=== PATIENT | female | born 1965 | race Caucasian/White ===

== ENCOUNTER → 2017-04-14 | Outpatient (CLI) | payer OTHER ==
[~2017-04-14] MED LIST: AA/A14DR7 OT; ALBU8.5H IH; AUG500 PO; AZIT-1 PO; AZIT-18 PO; BACDS PO; BUDE10.2 INH; CEP500 PO; CHOL100059 PO; CLIN300C99 PO; CLOT15CR62 TP; CODE118S5 PO; DICL-195 PO; DICL100G39 TOP; DICL100T54 PO; DOXY-228 PO; DUL100/5PT INH; DULERAPT INH; DUONEB INH; FLU60SYR30 IM ONLY; FLUT1DIS28 IH; GUAI-334 PO; GUAI120L3 PO; HYDR-4309 PO; HYDR12.561 PO; IBU800 PO; IBUP800T37 PO; INDO-1 PO; IPRA3AMP21 IH; LEVO750T44 PO; LIDO700A19 TD; LIDO700A29 TD; LOR5 PO; LOVA10TA63 PO; NO ROUTINE MEDS; NO RTN MEDS; PAN40 PO; PANT40TA65 PO; PER PO; PHENA200 PO; POTA99TA6 PO; PRE20 PO; PRED20TA6 PO; RANI-324 PO; RANI150C17 PO; SIMV10TA98 PO; TIOT4MIS5 INH; TRAM-420 PO
--- NOTE | 2017-04-14 11:06 | RADIOLOGY IMAGING REPORT ---
FACILITY: [facility] [place] PATIENT NAME: Sayra Vilchis : 1965 MR: [id number] V: [id number] EXAM DATE: ORDERING PHYSICIAN: ROSANA PEREZ TECHNOLOGIST: Location: [facility] [place] Patient: Sayra Vilchis : 1965 Visit/Account:[id number] Date of Sevice: 04/14/2017 Exam type: VENOUS DOPP LOW LEFT EXTREMITY History: Left leg became painful Wednesday night Comparison: None. Findings: Left lower extremity veins were imaged including the left common femoral vein greater saphenous vein superficial femoral vein popliteal vein posterior tibial vein peroneal vein anterior tibial vein reve aling no evidence of intraluminal thrombi. The veins were compressible and demonstrated phasic flow IMPRESSION: 1. No sonographic evidence DVT involving the left lower extremity veins A message was left for Rosana Perez at 04/14/2017 9:58 AM. Report Dictated By: Evelia Mora MD at 04/14/2017 9:54 AM Report E-Signed By: Evelia Mora MD at 04/14/2017 9:59 AM WSN:[email or web address]
== END ==
LOC: RAD 08:40
PROVIDERS: ATTEND Nurse Practitioner Primary Care
DX: M79.662 Pain in left lower leg (principal)

== ENCOUNTER → 2017-06-10 | Outpatient (CLI) | payer OTHER ==
[~2017-06-10] MED LIST changes: +BENZ200C15 PO
--- NOTE | 2017-06-10 16:21 | RADIOLOGY IMAGING REPORT ---
FACILITY: [facility] PATIENT NAME: Sayra Vilchis : 1965 MR: [id number] V: [id number] EXAM DATE: ORDERING PHYSICIAN: JOHN BERGERON TECHNOLOGIST: Location: [facility] [place] Patient: Sayra Vilchis : 1965 Visit/Account:[id number] Date of Sevice: 06/10/2017 CHEST PA AND LAT INDICATION: cough, hx copd COMPARISON: 02/22/2017 FINDINGS: Heart size within normal limits. There is no focal infiltrate or lobar consolidation. Mild chronic interstitial prominence is again noted at the lung bases. There is no pneumothorax or pleural effusion. IMPRESSION: 1. No acute cardiopulmonary process. Report Dictated By: Darien Figueroa at 06/10/2017 4:15 PM Report E-Signed By: Darien Figueroa at 06/10/2017 4:17 PM WSN:[id number]
== END ==
LOC: RAD 15:22
PROVIDERS: ATTEND Nurse Practitioner Family
DX: R05 Cough (principal); Z87.09 Personal history of other diseases of the respiratory system
CPT/HCPCS: 71046

== ENCOUNTER 2017-06-13 16:00 | Emergency (ER) | payer OTHER ==
--- NOTE | 2017-06-13 16:08 | ER Report ---
History and Physical Time Seen By MD: 16:08 Hx. of Stated Complaint: Patient with cough since Wednesday. Saw PCP on with Rx for couch medicine, steroids, breathing treatment. Now with continued cough and ear pain. HPI/ROS CHIEF COMPLAINT: Cough HISTORY OF PRESENT ILLNESS: 51-year-old female patient presents to emergency room with complaint of cough. Patient states she started getting sick on Wednesday. She states that she was seen by a primary care provider on . She states that she was started on medicine for the cough, prednisone all with no improvement. She states that she started having fevers night and Wednesday, ranging between 101 and 103. She states that the cough is just persisted. She states she is not feeling any better. She she's been taking the medication as directed also with no improvement. REVIEW OF SYSTEMS: Respiratory: As noted above Cardiovascular: No chest pain, no palpitations. Gastrointestinal: No vomiting, no abdominal pain. Musculoskeletal: No back pain. Allergies: Coded Allergies: levofloxacin (Verified Allergy, Severe, angioedema, 06/13/17) "Caused my throat to swell up". aloe vera (Verified Allergy, Mild, 06/13/17) hydroxyzine (Verified Allergy, Mild, 06/13/17) naproxen (Verified Allergy, Mild, 06/13/17) tramadol (Verified Adverse Reaction, Intermediate, Nausea, headache, dizziness, 06/13/17) Home Meds Active Scripts Promethazine HCl/Codeine (Prometh-Codein 6.25-10 mg/5 ml) 5 Ml Syrup, 1 TSP PO QHS Y for COUGH, #120 ML Prov:NATHALIA MOON [facility] 06/13/17 Azithromycin 250 Mg Tab (AZITHROMYCIN 250 MG TAB) 250 Mg Tablet, 1 TAB PO QDAY, #6 TAB Take 2 tabs today and then 1 tab a day until gone. Prov:NATHALIA MOON [facility] 06/13/17 Prednisone (PREDNISONE) 20 Mg Tablet, 20 MG PO BID, #10 TAB Prov:JOHN BERGERON [facility]- 06/11/17 Benzonatate (BENZONATATE) 200 Mg Capsule, 200 MG PO TID, #15 CAP 0 Refills Prov:JOHN BERGERON [facility]- 06/10/17 Ibuprofen (IBUPROFEN) 800 Mg Tablet, 1 TAB PO Q8H Y for PAIN, #20 TAB 0 Refills Prov:OSMAR LEW DNP, [facility] 04/16/17 Pantoprazole Sodium (PANTOPRAZOLE SODIUM) 40 Mg Tablet.dr, 40 MG PO QDAY, #30 TAB.SR 6 Refills Prov:DARSHAN DE LA CRUZ MD 02/25/17 Simvastatin (SIMVASTATIN) 10 Mg Tablet, 1 TAB PO HS, #90 TAB 3 Refills Prov:OSMAR LEW DNP, FNPMadelaine 02/02/17 Diclofenac Sodium 1% Gel (VOLTAREN 1% GEL) 100 Gm Gel..gram., 2 G TOP Q6H for PAIN, #1 BOTTLE 5 Refills Prov:OSMAR LEW DNP, FNP-BC 02/02/17 Lidocaine (Lidocaine) 5 % Adh..patch, 1-3 ADH.PATCH TD QDAY, #30 PATCH 5 Refills May apply 1/2-1 patch and secure with adhesive tape/stockingette. Prov:OSMAR LEW DNP, FNP-BC 02/02/17 Albuterol Sulfate 90 Mcg/Act (PROAIR HFA 90 MCG/ACT) 8.5 Gm Hfa.aer.ad, 2 PUFF IH Q4-6H Y for SHORTNESS OF BREATH, #1 INHALER 3 Refills Prov[facility] 02/02/17 Diclofenac Sodium (DICLOFENAC SODIUM) 75 Mg Tablet.dr, 1 TAB PO BID for PAIN, # 90 TAB 3 Refills take with food. Prov:OSMAR LEW DNP, FNP-BC 02/02/17 Mometasone/Formoterol (DULERA 200 MCG/5 MCG INHALER) 13 Gm Inh, 2 PUFF INH BID, #1 INH 11 Refills Prov:OSMAR LEW DNP, FNPMadelaine 08/12/16 Cholecalciferol (Vitamin D3) (VITAMIN D3) 1,000 Unit Capsule, 1000 UNIT PO DAILY , #100 CAPSULE 3 Refills Prov:JORDIN GARCIA MD 05/22/16 Reported Medications Ranitidine Hcl (ZANTAC) 150 Mg Tablet, 150 MG PO QAM, TAB 06/13/17 Discontinued Scripts Tramadol Hcl (TRAMADOL HCL) 50 Mg Tablet, 1-2 TAB PO Q6H Y for PAIN, #20 TAB 0 Refills Prov:OSMAR LEW DNP, HOUSEHOLD APPLIANCE ASSEMBLER-BC 04/14/17 Prednisone (PREDNISONE) 20 Mg Tablet, 1 TAB PO TID for 5 Days, #15 TAB 0 Refills Prov:DARSHAN DE LA CRUZ MD 02/25/17 Past Medical/Surgical History Patient has a past medical history of bronchitis, pneumonia, COPD. Patient has surgical history of tubal ligation, section 4. Reviewed Nurses Notes: Yes Hx Smoking: Yes Smoking Status: Former Smoker Exposure to Second Hand Smoke?: Yes Hx Substance Use Disorder: No Hx Alcohol Use: No Constitutional Vital Sign - Last 24 Hours 06/13/17 06/13/17 06/13/17 06/13/17 16:03 16:03 16:20 16:20 Temp 98.4 Pulse 86 80 84 Resp 20 16 B/P (MAP) 146/92 (110) 146/92 Pulse Ox 89 90 O2 Delivery Room Air 06/13/17 06/13/17 06/13/17 06/13/17 16:27 16:40 17:00 17:20 Pulse 82 95 88 93 Resp 18 B/P (MAP) 131/78 (95) Pulse Ox 91 95 89 06/13/17 17:23 B/P (MAP) 139/77 (97) Physical Exam General Appearance: The patient is alert, has no immediate need for airway protection and no current signs of toxicity. ENT: Tympanic membranes are pearly-evans, auditory canals are patent, mucous membranes are moist. Respiratory: Chest is non tender, lungs are clear to auscultation. Cardiac: regular rate and rhythm Gastrointestinal: Abdomen is soft and non tender, no masses, bowel sounds normal. Musculoskeletal: Neck: Neck is supple and non tender. Extremities have full range of motion and are non tender. Skin: No rashes or lesions. DIFFERENTIAL DIAGNOSIS: After history and physical exam differential diagnosis was considered for shortness of breath including but not limited to pulmonary infectious process, COPD, asthma, pulmonary embolus and congestive heart failure. Medical Decision Making Data Points Result Diagram: 06/13/17 1634 06/13/17 1634 Laboratory Hematology Test 06/13/17 16:34 06/13/17 16:37 Red Blood Count 5.17 M/uL (4.17-5.56) Mean Corpuscular Volume 82.9 fL (80.0-96.0) Mean Corpuscular Hemoglobin 27.8 pg (26.0-33.0) Mean Corpuscular Hemoglobin Concent 33.6 g/dL (32.0-36.0) Red Cell Distribution Width 14.7 % (11.5-14.5) Mean Platelet Volume 8.0 fL (7.2-11.1) Neutrophils (%) (Auto) 85.9 % (39.4-72.5) Lymphocytes (%) (Auto) 7.9 % (17.6-49.6) Monocytes (%) (Auto) 5.2 % (4.1-12.4) Eosinophils (%) (Auto) 0.0 % (0.4-6.7) Basophils (%) (Auto) 1.0 % (0.3-1.4) Nucleated RBC Relative Count (auto) 0.0 /100WBC Neutrophils # (Auto) 10.5 K/uL (2.0-7.4) Lymphocytes # (Auto) 1.0 K/uL (1.3-3.6) Monocytes # (Auto) 0.6 K/uL (0.3-1.0) Eosinophils # (Auto) 0.0 K/uL (0.0-0.5) Basophils # (Auto) 0.1 K/uL (0.0-0.1) Nucleated RBC Absolute Count (auto) 0.00 K/uL D-Dimer Quantitative (PE/DVT) 0.39 ug/ml (0-0.50) Sodium Level 138 mmol/L (137-145) Potassium Level 4.3 mmol/L (3.5-5.0) Chloride Level 103 mmol/L (98-107) Carbon Dioxide Level 22 mmol/L (22-31) Blood Urea Nitrogen 18 mg/dl (7-18) Creatinine 1.00 mg/dl (0.52-1.04) Glomerular Filtration Rate Calc 58.9 Random Glucose 129 mg/dl (75-110) Calcium Level 9.2 mg/dl (8.4-10.2) Total Bilirubin 0.3 mg/dl (0.2-1.3) Aspartate Amino Transf (AST/SGOT) 28 U/L (0-35) Alanine Aminotransferase (ALT/SGPT) 32 U/L (0-56) Alkaline Phosphatase 64 U/L (0-126) B-Type Natriuretic Peptide 26 pg/ml (0-100) Total Protein 7.4 gm/dl (6.3-8.2) Albumin 3.9 g/dl (3.5-5.0) Influenza Virus Type A (PCR) Negative (NEGATIVE) Influenza Virus Type B (PCR) Negative (NEGATIVE) Respiratory Syncytial Virus (PCR) Positive (NEGATIVE) Chemistry Test 06/13/17 16:34 06/13/17 16:37 White Blood Count 12.2 k/uL (4.5-11.0) Red Blood Count 5.17 M/uL (4.17-5.56) Hemoglobin 14.4 g/dL (12.0-16.0) Hematocrit 42.9 % (34.0-47.0) Mean Corpuscular Volume 82.9 fL (80.0-96.0) Mean Corpuscular Hemoglobin 27.8 pg (26.0-33.0) Mean Corpuscular Hemoglobin Concent 33.6 g/dL (32.0-36.0) Red Cell Distribution Width 14.7 % (11.5-14.5) Platelet Count 328 K/uL (150-450) Mean Platelet Volume 8.0 fL (7.2-11.1) Neutrophils (%) (Auto) 85.9 % (39.4-72.5) Lymphocytes (%) (Auto) 7.9 % (17.6-49.6) Monocytes (%) (Auto) 5.2 % (4.1-12.4) Eosinophils (%) (Auto) 0.0 % (0.4-6.7) Basophils (%) (Auto) 1.0 % (0.3-1.4) Nucleated RBC Relative Count (auto) 0.0 /100WBC Neutrophils # (Auto) 10.5 K/uL (2.0-7.4) Lymphocytes # (Auto) 1.0 K/uL (1.3-3.6) Monocytes # (Auto) 0.6 K/uL (0.3-1.0) Eosinophils # (Auto) 0.0 K/uL (0.0-0.5) Basophils # (Auto) 0.1 K/uL (0.0-0.1) Nucleated RBC Absolute Count (auto) 0.00 K/uL D-Dimer Quantitative (PE/DVT) 0.39 ug/ml (0-0.50) Glomerular Filtration Rate Calc 58.9 Calcium Level 9.2 mg/dl (8.4-10.2) Total Bilirubin 0.3 mg/dl (0.2-1.3) Aspartate Amino Transf (AST/SGOT) 28 U/L (0-35) Alanine Aminotransferase (ALT/SGPT) 32 U/L (0-56) Alkaline Phosphatase 64 U/L (0-126) B-Type Natriuretic Peptide 26 pg/ml (0-100) Total Protein 7.4 gm/dl (6.3-8.2) Albumin 3.9 g/dl (3.5-5.0) Influenza Virus Type A (PCR) Negative (NEGATIVE) Influenza Virus Type B (PCR) Negative (NEGATIVE) Respiratory Syncytial Virus (PCR) Positive (NEGATIVE) Coagulation Test 06/13/17 16:34 D-Dimer Quantitative (PE/DVT) 0.39 ug/ml EKG/Imaging Imaging Examination: CHEST PA AND LAT Comparison: 06/10/2017 History: Respiratory distress. Cough. Findings: Cardiac and hilar contour size is within normal limits. Mild chronic bronchial thickening. No consolidation. Scattered pulmonary micronodules are unchanged over multiple studies. Additionally, there are calcified hilar nodes suggestive of old granulomatous disease. Osseous structures are intact. IMPRESSION: Chronic changes with no definite evidence of superimposed acute cardiopulmonary disease. Report Dictated By: Tae Westfall MD at 06/13/2017 5:03 PM Report E-Signed By: Tae Westfall MD at 06/13/2017 5:06 PM ED Course/Re-evaluation ED Course Patient was admitted to exam room, history and physical were obtained. Differential diagnoses were considered. On examination lungs are clear, heart is regular. A CBC, CMP, influenza screen were done. Lab results were unremarkable, influenza was negative, however he did receive a phone call the patient was positive for RSV. RSV test was ordered and results were documented. Chest x-ray was done which showed no acute cardiopulmonary processes. Due to the patient's history was COPD and fever we will go ahead and treat her with azithromycin. I did discuss the findings of the x-ray as well as lab work with the patient. We will go ahead and discharge patient home at this time. We will also give her a supply of promethazine with codeine cough syrup. Patient verbalized understanding and agreement with plan. She is to follow-up with her primary care provider this week. Decision to Disposition Date: Jun 13, 2017 Decision to Disposition Time: 17:17 Depart Departure Latest Vital Signs Vital Signs Date Time Temp Pulse Resp B/P (MAP) Pulse Ox O2 Delivery O2 Flow Rate FiO2 06/13/17 17:23 139/77 (97) 06/13/17 17:20 93 89 06/13/17 16:27 18 06/13/17 16:03 98.4 Room Air Impression: Primary Impression: COPD (chronic obstructive pulmonary disease) with acute bronchitis Condition: Improved Disposition: HOME OR SELF-CARE Referrals: OSMAR LEW DNP, HOUSEHOLD APPLIANCE ASSEMBLER-BC (PCP) New Scripts Promethazine HCl/Codeine (Prometh-Codein 6.25-10 mg/5 ml) 5 Ml Syrup 1 TSP PO QHS Y for COUGH, #120 ML Prov: NATHALIA MOON 06/13/17 Azithromycin 250 Mg Tab (AZITHROMYCIN 250 MG TAB) 250 Mg Tablet 1 TAB PO QDAY, #6 TAB Take 2 tabs today and then 1 tab a day until gone. Prov: NATHALIA MOON 06/13/17 Patient Instructions: COPD (Chronic Obstructive Pulmonary Disease) (ED) Additional Instructions: Increase fluid intake. continue with the Steroids and the breathing treatments. Get plenty of rest. Follow up with your primary care provider in the next week. Take the antibiotics as directed. Return to the ER if condition worsens. NATHALIA MOON Jun 13, 2017 16:08
[2017-06-13] MEDS ORDERED: RANI-324 PO (16:09)
[2017-06-13] MEDS ORDERED: NS(*) 0.9% 1000 ML BAG 1,000 ML IV ONE (16:13)
[2017-06-13] MEDS ORDERED: ALBUTEROL/IPRATROPIUM 3 ML NEB NEB ONE (16:15)
[2017-06-13 16:47] LABS: PLATELET COUNT, AUTOMATED 328 K/uL (150-450)
[2017-06-13] MEDS ORDERED: PROMETH/COD SYRP 6.25-10MG/5ML PO ONE (16:55)
--- NOTE | 2017-06-13 17:09 | RADIOLOGY IMAGING REPORT ---
FACILITY: [facility] PATIENT NAME: Sayra Vilchis : 1965 MR: [id number] V: [id number] EXAM DATE: ORDERING PHYSICIAN: NATHALIA MOON TECHNOLOGIST: Location: [facility] [place] Patient: Sayra Vilchis : 1965 Visit/Account:[id number] Date of Sevice: 06/13/2017 Examination: CHEST PA AND LAT Comparison: 06/10/2017 History: Respiratory distress. Cough. Findings: Cardiac and hilar contour size is within normal limits. Mild chronic bronchial thickening. No consolidation. Scattered pulmonary micronodules are unchanged over multiple studies. Additionally, there are calcified hilar nodes suggestive of old granulomatous disease. Osseous structures are inta ct. IMPRESSION: Chronic changes with no definite evidence of superimposed acute cardiopulmonary disease. Report Dictated By: Tae Westfall MD at 06/13/2017 5:03 PM Report E-Signed By: Tae Westfall MD at 06/13/2017 5:06 PM WSN:[id number]
[2017-06-13] MEDS ORDERED: PROM5SYR PO (17:18)
[2017-06-13] MEDS ORDERED: AZIT-18 PO (17:18)
[2017-06-13 17:23] VITALS: BP 139/77
[2017-06-15] MEDS ORDERED: IPRA3AMP21 IH ×2 (09:50→12:44)
[2017-06-15] MEDS ORDERED: PRED20TA6 PO (12:44)
--- NOTE | 2017-06-16 14:56 | Transitional Care Management ---
TCM Discharge Criteria Transitional Care Comment: 06/16 Left message. PREETI PRADHAN Jun 16, 2017 14:56
== END 2017-06-13 17:27 | disposition home or self-care (01) ==
LOC: ER 16:26
DX: J44.9 Chronic obstructive pulmonary disease, unspecified (principal); R06.00 Dyspnea, unspecified
CPT/HCPCS: 71046; 83880; 85025; 85379; 87502; 87798; 94640; 99284; J7620; 82040; 82247; 82310; 82374; 82435; 82565; 82947; 84075; 84132; 84155; 84295; 84450; 84460; 84520

== ENCOUNTER → 2017-06-15 | Outpatient (CLI) | payer OTHER ==
[~2017-06-15] MED LIST changes: +PROM5SYR PO
--- NOTE | 2017-06-15 10:54 | RADIOLOGY IMAGING REPORT ---
FACILITY: [facility] [place] PATIENT NAME: Sayra Vilchis : 1965 MR: [id number] V: [id number] EXAM DATE: ORDERING PHYSICIAN: OSMAR LEW TECHNOLOGIST: Location: [facility] [place] Patient: Sayra Vilchis : 1965 Visit/Account:[id number] Date of Sevice: 06/15/2017 Technique: CHEST PA AND LAT HISTORY: Cough Comparison studies: Chest radiographs June 13, 2017 FINDINGS: No lobar airspace consolidation. No pleural effusion or pneumothorax. The cardiomediastin al silhouette, scattered micronodules and granulomatous findings are unchanged. IMPRESSION: 1. No acute cardiopulmonary process. 2. Chronic changes as above Report Dictated By: Isac Watkins DO at 06/15/2017 10:49 AM Report E-Signed By: Isac Watkins DO at 06/15/2017 10:50 AM WSN:[id number]
== END ==
LOC: RAD 10:03
PROVIDERS: ATTEND Nurse Practitioner Primary Care
DX: R91.8 Other nonspecific abnormal finding of lung field (principal)
CPT/HCPCS: 71046

== ENCOUNTER → 2017-07-28 | Outpatient (CLI) | payer OTHER ==
[~2017-07-28] MED LIST changes: +OMEP40CA48 PO; -RANI-324 PO; +RANI-366 PO; +TRIA15CR40 TP
[2017-07-28 10:36] LABS: LDL CHOLESTEROL 102 mg/dl
== END ==
LOC: LAB 09:16
PROVIDERS: ATTEND Nurse Practitioner Primary Care
DX: E78.00 Pure hypercholesterolemia, unspecified (principal); R63.5 Abnormal weight gain
CPT/HCPCS: 36415; 82040; 82247; 82310; 82374; 82435; 82465; 82565; 82947; 83036; 83718; 84075; 84132; 84155; 84295; 84450; 84460; 84478; 84520

== ENCOUNTER 2017-08-12 15:30 | Outpatient (RCR) | payer OTHER ==
--- NOTE | 2017-08-02 11:02 | OT INITIAL EVALUATION ---
SUBJECTIVE: Patient is a 51 year old right hand dominant female referred to OP OT services for right hand pain and difficulty performing ADLs with the right hand. Patient reports that in 2013 she fell on the ice fracturing her right elbow while at work. She did not require any surgery as a result of the fall. She reports that a few months after the fall her right hand and wrist started hurting-most of the pain was reported to be along the ulnar side of the hand and wrist. Patient also reports of swelling in the wrist. Pain was rated at a constant 4/10 and after the evaluation it was rated at a 8.5/10. She has had multiple tests and has seen multiple providers on her right hand and wrist pain. Nothing definitive has resulted from these tests and visits. Patient has not had any surgery for the right hand. This is an active workman's comp case. Patient reports that she has a hearing in [place], [place] on October 05 with Workman 's Compensation. Patient is seeking from OP OT services ways to help her use adaptive equipment or help with modifications when using the right hand in activities. Previous Medical History: please refer to chart Current Limitations: decreased strength and functional use of the right hand Occupation: N/A OBJECTIVE: ROM: Right Left Wrist Flexion 34* 70* Wrist Extension 40* 70* Strength: Material Assistant Right = 47# (Age/gender normative= 62.2#) Left= 72.7# (Age/gender normative= 56#) Lateral Pinch Right = 15.3# (Age/gender normative= 17.6#) Left= 17.2# (Age/gender normative=16.6#) 3 Point Pinch Right =12.8# (Age/gender normative= 17.9#) Left= 15.7# (Age/gender normative= 17.5#) Sensation: reports of a mix of pain symptoms-pins and needles when bending her right wrist; burning and numbness along the ulnar side of the right hand and wrist; shooting pain in the fingers-mainly the 3rd and 4th Special Test: 9 Hole Peg Test (dexterity) Right= 24 seconds (Age/gender normative= 17.3 seconds) Left= 27 seconds (Age/gender normative= 18.4 seconds) ASSESSMENT Patient presents with decreased right wrist ROM and decreased strength for right pathological technician and pinch. Patient does present with decreased fine motor coordination of the right hand. Patient to benefit from OP OT intervention to help increase ROM and strength of the right hand/wrist for ADLs along with education on adaptive equipment and activity modification when using the right hand. Short Term Goals 1.Patient will decrease time on the 9 Hole Peg Test by 5 seconds on the right hand in order to complete fine motor coordination activities in a timely manner. 2.Patient will complete HEP without assistance. 3.Patient will utilize adaptive techniques and activity modifications for the right hand in order to complete ADLs. PLAN: Plan to see patient 2 times a week for 6 weeks. Plan of care to include: ther ex, ther act, fluidotherapy, hot packs, paraffin, self cares, adaptive equipment, activity modifications Thank you for this referral. If you have any questions, concerns, or comments about this report or plan, please contact me at [phone]. Lu Martínez MS, OTR/L Occupational Therapist [facility]
--- NOTE | 2017-08-12 16:31 | OT DISCHARGE SUMMARY ---
SUBJECTIVE: Patient is a 51 year old right hand dominant female referred to OP OT services for right hand pain and difficulty performing ADLs with the right hand. Patient reports that in 2013 she fell on the ice fracturing her right elbow while at work. She did not require any surgery as a result of the fall. She reports that a few months after the fall her right hand and wrist started hurting-most of the pain was reported to be along the ulnar side of the hand and wrist. Patient also reports of swelling in the wrist. Pain was rated at a constant 4/10 and after the evaluation it was rated at a 8.5/10. She has had multiple tests and has seen multiple providers on her right hand and wrist pain. Nothing definitive has resulted from these tests and visits. Patient has not had any surgery for the right hand. This is an active workman's comp case. Patient reports that she has a hearing in [place], [place] on October 05 with Workman 's Compensation. Patient is seeking from OP OT services ways to help her use adaptive equipment or help with modifications when using the right hand in activities. Reports of pain were always 4/10. Previous Medical History: please refer to chart Current Limitations: decreased strength and functional use of the right hand Occupation: N/A OBJECTIVE: all data is from the initial evaluation, patient did not tolerate ROM or strengthening exercises so there would be no change in the objective data. Patient continues to have pain and discomfort with her right hand and wrist. ROM: Right Left Wrist Flexion 34* 70* Wrist Extension 40* 70* Strength: Grocery Department Manager Right = 47# (Age/gender normative= 62.2#) Left= 72.7# (Age/gender normative= 56#) Lateral Pinch Right = 15.3# (Age/gender normative= 17.6#) Left= 17.2# (Age/gender normative=16.6#) 3 Point Pinch Right =12.8# (Age/gender normative= 17.9#) Left= 15.7# (Age/gender normative= 17.5#) Sensation: reports of a mix of pain symptoms-pins and needles when bending her right wrist; burning and numbness along the ulnar side of the right hand and wrist; shooting pain in the fingers-mainly the 3rd and 4th Special Test: 9 Hole Peg Test (dexterity) Right= 24 seconds (Age/gender normative= 17.3 seconds) Left= 27 seconds (Age/gender normative= 18.4 seconds) ASSESSMENT Patient did not tolerate ROM or strengthening exercises and when she did complete these her symptoms only increased. OT did try fluidotherapy treatments , while this was relaxing for the right hand, patient did not report of a decrease in her pain symptoms. Adaptive equipment needs were identified that would help modify activities that the patient was doing with the right hand. 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 OT services is discharging at this time as treatments to manage the patient's symptoms did not decrease. Short Term Goals 1.Patient will decrease time on the 9 Hole Peg Test by 5 seconds on the right hand in order to complete fine motor coordination activities in a timely manner. (not met) 2.Patient will complete HEP without assistance. (met, but patient was not able to tolerate the exercises, they increased symptoms) 3.Patient will utilize adaptive techniques and activity modifications for the right hand in order to complete ADLs. (met) PLAN: Plan to discharge patient from OT services at this time with no further recommendations. Thank you for this referral. If you have any questions, concerns, or comments about this report or plan, please contact me at [phone]. Lu Martínez MS, OTR/L Occupational Therapist [facility]
== END 2017-08-12 18:00 | disposition home or self-care (01) ==
LOC: OT 15:30
PROVIDERS: ATTEND Nurse Practitioner Primary Care
DX: M79.641 Pain in right hand (principal); R20.2 Paresthesia of skin; M79.89 Other specified soft tissue disorders
CPT/HCPCS: 97165

== ENCOUNTER → 2017-08-18 | Outpatient (CLI) | payer OTHER | LOC: RESP 19:49 | PROVIDERS: ATTEND Nurse Practitioner Primary Care | DX: G47.33 Obstructive sleep apnea (adult) (pediatric) (principal); G47.36 Sleep related hypoventilation in conditions classified elsewhere; E66.3 Overweight ==

== ENCOUNTER → 2017-10-27 | Outpatient (CLI) | payer OTHER ==
[~2017-10-27] MED LIST changes: -INDO-1 PO; +INDO-21 PO; +IPRA3AMP10 IH; -IPRA3AMP21 IH
== END ==
LOC: RESP 20:54
PROVIDERS: ATTEND Nurse Practitioner Primary Care
DX: Z02.9 Encounter for administrative examinations, unspecified (principal)

== ENCOUNTER → 2017-10-28 | Outpatient (CLI) | payer OTHER ==
[~2017-10-28] MED LIST changes: +HYDR-2966 PO
== END ==
LOC: US 01:16
PROVIDERS: ATTEND Nurse Practitioner Primary Care
DX: I35.1 Nonrheumatic aortic (valve) insufficiency (principal); I07.1 Rheumatic tricuspid insufficiency; I34.0 Nonrheumatic mitral (valve) insufficiency
CPT/HCPCS: 93306

== ENCOUNTER → 2017-11-15 | Outpatient (CLI) | payer OTHER | LOC: LAB 08:46 | PROVIDERS: ATTEND Nurse Practitioner Primary Care | DX: R60.9 Edema, unspecified (principal) | CPT/HCPCS: 36415; 82310; 82374; 82435; 82565; 82947; 84132; 84295; 84520 ==

== ENCOUNTER → 2018-02-15 | Outpatient (CLI) | payer OTHER ==
[~2018-02-15] MED LIST changes: +FLU60SYR36 IM; -HYDR-4309 PO; +HYDR-653 PO
[2018-02-15 08:49] LABS: LDL CHOLESTEROL 76 mg/dl
== END ==
LOC: LAB 08:15
PROVIDERS: ATTEND Nurse Practitioner Primary Care
DX: E78.00 Pure hypercholesterolemia, unspecified (principal); J44.0 Chronic obstructive pulmonary disease with (acute) lower respiratory infection
CPT/HCPCS: 36415; 82040; 82247; 82310; 82374; 82435; 82465; 82565; 82947; 83718; 84075; 84132; 84155; 84295; 84450; 84460; 84478; 84520

== ENCOUNTER → 2018-08-16 | Outpatient (CLI) | payer OTHER ==
[~2018-08-16] MED LIST changes: +DIPH0.5S2 IM
== END ==
LOC: LAB 08:29
PROVIDERS: ATTEND Nurse Practitioner Primary Care
DX: R60.0 Localized edema (principal); E78.00 Pure hypercholesterolemia, unspecified
CPT/HCPCS: 36415; 82040; 82247; 82310; 82374; 82435; 82565; 82947; 84075; 84132; 84155; 84295; 84450; 84460; 84520

== ENCOUNTER → 2018-09-07 | Outpatient (REF) | payer OTHER ==
[~2018-09-07] MED LIST changes: -RANI-366 PO; +RANI-54 PO
[2018-09-07 16:34] LABS: PLATELET COUNT, AUTOMATED 419 K/uL (150-450)
== END ==
LOC: ZZSTITCHES 16:05
PROVIDERS: ATTEND Physician Assistant
DX: R42 Dizziness and giddiness (principal); R29.818 Other symptoms and signs involving the nervous system
CPT/HCPCS: 82040; 82247; 82310; 82374; 82435; 82565; 82947; 84075; 84132; 84155; 84295; 84450; 84460; 84520; 85025

== ENCOUNTER → 2018-09-09 | Outpatient (CLI) | payer OTHER ==
[~2018-09-09] MED LIST changes: +Return to work
== END ==
LOC: LAB 09:13
PROVIDERS: ATTEND Nurse Practitioner Primary Care
DX: R42 Dizziness and giddiness (principal)
CPT/HCPCS: 36415; 82040; 82247; 82310; 82374; 82435; 82565; 82947; 84075; 84132; 84155; 84295; 84450; 84460; 84520

== ENCOUNTER → 2018-09-23 | Outpatient (CLI) | payer OTHER ==
--- NOTE | 2018-09-23 11:54 | RADIOLOGY IMAGING REPORT ---
FACILITY: [facility] PATIENT NAME: Sayra Vilchis : 1965 MR: [id number] V: [id number] EXAM DATE: ORDERING PHYSICIAN: ESTUARDO BRASHER TECHNOLOGIST: Location: [facility] Patient: Sayra Vilchis : 1965 Visit/Account:[id number] Date of Sevice: 09/23/2018 Exam type: CHEST PA LAT History: pre op clearance, history of COPD with acute bronchitis, obstructive sleep apnea Comparison: June 15, 2017. Findings: The lungs are free of acute effusions, infiltrates or edema. Cardiac silhouette is normal in size. Trachea is in midline. IMPRESSION: 1. No acute cardiopulmonary process is seen Report Dictated By: Evelia Mora MD at 09/23/2018 11:47 AM Report E-Signed By: Evelia Mora MD at 09/23/2018 11:48 AM WSN:[email or web address]
== END ==
LOC: LAB 09:28
PROVIDERS: ATTEND Nurse Practitioner Primary Care
DX: R42 Dizziness and giddiness (principal); J44.0 Chronic obstructive pulmonary disease with (acute) lower respiratory infection; G47.33 Obstructive sleep apnea (adult) (pediatric)
CPT/HCPCS: 36415; 71046; 82040; 82247; 82310; 82374; 82435; 82565; 82947; 84075; 84132; 84155; 84295; 84450; 84460; 84520

== ENCOUNTER → 2018-09-23 | Outpatient (CLI) | payer OTHER | LOC: RAD 09:30 | PROVIDERS: ATTEND Surgery | DX: Z02.9 Encounter for administrative examinations, unspecified (principal) ==

== ENCOUNTER → 2018-10-11 | Outpatient (CLI) | payer OTHER ==
--- NOTE | 2018-10-12 13:49 | RADIOLOGY IMAGING REPORT ---
FACILITY: [facility] - [place] PATIENT NAME: JUANA WILLIAMSON : [id number] MR: [id number] V: [id number] EXAM DATE: ORDERING PHYSICIAN: OSMAR LEW TECHNOLOGIST: Lady Simms PROCEDURE: BILATERAL DIGITAL SCREENING MAMMOGRAM WITH CAD ASSISTED INTERPRETATION & 3D TOMOSYNTHESIS. REASON FOR STUDY: Screening. COMPARISON: 12/03/2015 & 07/12/2014. VIEWS OBTAINED: 2D & 3D full field CC & MLO projections. BREAST DENSITY: Breast tissue is heterogeneously dense. MAMMOGRAM FINDINGS: There is no suspicious mass, calcification, or architectural distortion. IMPRESSION: BIRADS 1: Negative. DIAGNOSTIC CATEGORY 1--NEGATIVE. RECOMMENDATIONS: ROUTINE MAMMOGRAM AND CLINICAL EVALUATION IN 1YR. Dictated by: Braulio White M.D. on 10/12/2018 at 11:38 Transcribed by: HA on 10/12/2018 at 13:00 Approved by: Braulio White M.D. on 10/12/2018 at 13:44 [facility]
== END ==
LOC: MAMO 01:40
PROVIDERS: ATTEND Nurse Practitioner Primary Care
DX: Z12.31 Encounter for screening mammogram for malignant neoplasm of breast (principal)
CPT/HCPCS: 77063; 77067

== ENCOUNTER 2018-10-14 00:55 | Day surgery (SDC) | payer OTHER ==
[~2018-10-14] VITALS: Ht 165.1 cm; Wt 98.9 kg
[2018-10-14] MEDS ORDERED: LIDOCAINE/SOD BICARB 8.4% SYR ID ONE (09:20)
[2018-10-14] MEDS ORDERED: NORMOSOL R SOLN(*) 1000 ML BAG 1,000 ML IV PRN (09:20)
[2018-10-14 09:38] VITALS: BP 133/91
[2018-10-14 11:42] VITALS: BP 112/76
--- NOTE | 2018-10-14 11:48 | NUR ---
PT. REPORTS HAS TO USE RESTROOM. ATTEMPTED TO PLACE ON BEDPAN. UNSUCCESSFUL. PT. REQUESTING TO REST.
--- NOTE | 2018-10-14 11:48 | NUR ---
OA REMOVED AT 1144. SNORING NOTED. ABLE TO SUPPORT OWN AIRWAY.
--- NOTE | 2018-10-14 11:52 | Short(Outpt) Discharge Summary ---
Discharge Summary Reason for Hosp/Final Diag: (1) Encounter for screening colonoscopy Hospital Course & Plan: pt presented for colonoscopy. she tolerated the procedure well and will be discharged home when criteria met. Discharge Instructions Home Meds Active Scripts Cholecalciferol (Vitamin D3) (VITAMIN D3) 1,000 Unit Capsule, 1 CAP PO DAILY, #90 CAPSULE 4 Refills Prov:OSMAR LEW DNP 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 Patient not to be lifting anything over 10 lbs. due to decreased strength & ROM in R wrist. Prov:OSMAR LEW DNP [facility] 09/09/18 Mometasone/Formoterol (DULERA 200 MCG/5 MCG INHALER) 13 Gm Inh, 2 PUFF INH BID, #3 INH 10 Refills Prov:OSMAR LEW DNP [facility] 08/30/18 Diclofenac Sodium (DICLOFENAC SODIUM) 75 Mg Tablet.dr, 1 TAB PO BID for PAIN, #90 TAB 3 Refills take with food. Prov:OSMAR LEW DNP [facility] 07/12/18 Simvastatin (SIMVASTATIN) 10 Mg Tablet, 1 TAB PO HS, #90 TAB 3 Refills Prov:OSMAR LEW DNP [facility] 02/22/18 Ipratropium/Albuterol Sulfate (IPRAT-ALBUT 0.5-3(2.5) MG/3 ML) 3 Ml Ampul.neb, 3 ML IH QID PRN for SHORTNESS OF BREATH, #1 BOX 0 Refills Prov:OSMAR LEW DNP [facility] 02/07/18 Hydrochlorothiazide (HYDROCHLOROTHIAZIDE) 25 Mg Tablet, 1 TAB PO QDAY for 30 Days, #90 TAB 3 Refills Prov:OSMAR LEW DNP [facility] 11/15/17 Pantoprazole Sodium (PANTOPRAZOLE SODIUM) 40 Mg Tablet.dr, 1 TAB PO QDAY, #90 TAB.SR 4 Refills Prov:OSMAR LEW DNP [facility] 09/21/17 Albuterol Sulfate 90 Mcg/Act (PROAIR HFA 90 MCG/ACT) 8.5 Gm Hfa.aer.ad, 2 PUFF IH Q4-6H PRN for SHORTNESS OF BREATH, #1 INHALER 3 Refills Prov:OSMAR LEW DNP, [facility] 02/02/17 Reported Medications Ranitidine Hcl (ZANTAC) 150 Mg Tablet, 150 MG PO QDAY, TAB 10/11/18 Triamcinolone Acetonide 0.1% Cr 15 Gm Tube (TRIAMCINOLONE ACETONIDE 0.1% CREAM) 15 Gm Cream..g., 15 GM TP, TUBE 07/23/17 Diet: Regular Activity: As Tolerated Special Instructions: repeat colonoscopy in 10 yrs ESTUARDO BRASHER Oct 14, 2018 11:52
[2018-10-14 12:06] VITALS: BP 103/75
[2018-10-14 12:20] VITALS: BP 103/74
[2018-10-14 12:24] VITALS: BP 116/81
== END 2018-10-14 12:39 | disposition home or self-care (01) ==
LOC: OR 00:55
PROVIDERS: ATTEND Surgery
DX: Z12.11 Encounter for screening for malignant neoplasm of colon (principal); K57.30 Diverticulosis of large intestine without perforation or abscess without bleeding; Z83.71 Family history of colonic polyps